=== PATIENT | male | born 1955 | race Caucasian/White ===

== ENCOUNTER 2021-10-31 17:39 | Inpatient (IN) ==
[2021-10-31] MEDS ORDERED: ONDANSETRON 4 MG/2 ML VIAL IV STA (19:20)
[2021-10-31] MEDS ORDERED: HYDROmorphone 1 MG/1 ML SYRINGE IV STA ×2 (19:20→22:04)
[2021-10-31] MEDS ORDERED: AMPICILLIN/SULBACTAM 3,000 MG in SODIUM CHLORIDE 0.9% 100 ML IV STA (19:21)
[2021-10-31 19:32] LABS: Basophils % 0.2 % (0.0-0.8); Eosinophils # 0.2 10*3/uL (0.0-0.87); Eosinophils % 1.5 % (0.00-10.9); Hematocrit 45.2 VOL% (42.0-52.0); Hemoglobin 14.9 GM/DL (14.0-18.0); Immature Granulocytes % 0.4 %; Immature Granulocytes Absolute 0.06 #; Lymphocytes # 1.3 10*3/uL (1.4-4.0); Lymphocytes % 9.2 % (21.2-54.2); Mean Corpuscular Volume 93.4 FL (87-102); Mean Platelet Volume 9.6 FL (9.6-12.0); Monocytes % 7.7 % (1.7-12.7); Platelet Count 250 T/CUMM (130-400); Red Blood Count 4.84 MC/CUMM (3.8-5.5); Red Cell Distribution Width 12.8 % (9.3-17.3); White Blood Count 14.5 T/CUMM (4-12)
[2021-10-31 19:44] LABS: Albumin 3.7 G/DL (3.4-5.0); Bilirubin,Total 0.7 MG/DL (0.20-1.00); Osmolality,Calculated 272.8 MOS/KG (273-304); Potassium 3.8 MMOL/L (3.5-5.1); Total Protein 7.5 G/DL (6.4-8.2)
[2021-10-31 20:06] LABS: Bacteria,Urine Occasional /HPF (Few); Mucus,Urine Many /LPF (Occasional); RBC,Urine 2 /HPF (0-4)
[2021-10-31 20:07] LABS: Bilirubin,Urine Negative (Negative); Blood, Urine Trace mg/dL (Negative); Glucose,Urine (UA) Negative (Negative); Ketones,Urine 15 mg/dL (Negative); Nitrite,Urine Negative (Negative); Protein,Urine Negative (Negative); Urine Appearance Clear (Clear); Urine Color Yellow (Yellow); Urine Specific Gravity 1.025 (1.001-1.035); Urine Urobilinogen 0.2 eU/dL (<2.0); Urine pH 5.5 (4.5-8.0)
[2021-10-31] MEDS ORDERED: ATORVASTATIN 40 MG TABLET PO ONE (21:34)
[2021-10-31] MEDS ORDERED: RANOLAZINE 500 MG TABLET PO SCH (21:35)
[2021-10-31] MEDS: HYDROmorphone 1 MG/1 ML SYRINGE IV SCH (21:50)
[2021-10-31] MEDS ORDERED: ONDANSETRON 4 MG/2 ML VIAL IV PRN (22:02)
[2021-10-31] MEDS: LACTATED RINGERS 1,000 ML IV SCH (23:00)
[2021-11-01] MEDS: HYDROmorphone 1 MG/1 ML SYRINGE IV SCH ×6 (03:05→21:22)
[2021-11-01] MEDS: AMPICILLIN/SULBACTAM 3,000 MG in SODIUM CHLORIDE 0.9% 100 ML IV SCH ×3 (03:39→21:20)
[2021-11-01] MEDS: LACTATED RINGERS 1,000 ML IV SCH ×4 (06:42→21:22)
[2021-11-01] MEDS: PANTOPRAZOLE 40 MG TABLET PO SCH (09:34)
[2021-11-01] MEDS ORDERED: ONDANSETRON 4 MG/2 ML VIAL IV PRN (12:56)
[2021-11-01] MEDS ORDERED: INFLUENZA VIRUS VACCINE 0.5 ML SYRINGE IM ONE (14:59)
[2021-11-01] MEDS: ACETAMINOPHEN 325 MG TABLET PO PRN (16:23)
[2021-11-01] MEDS: ATORVASTATIN 40 MG TABLET PO SCH (21:20)
[2021-11-01] MEDS: MAGNESIUM GLUCONATE 500 MG TABLET PO SCH (21:20)
[2021-11-01] MEDS: RANOLAZINE 500 MG TABLET PO SCH (21:20)
[2021-11-02] MEDS: LACTATED RINGERS 1,000 ML IV SCH ×5 (00:51→22:45)
[2021-11-02] MEDS: HYDROmorphone 1 MG/1 ML SYRINGE IV SCH ×6 (03:37→22:41)
[2021-11-02] MEDS: AMPICILLIN/SULBACTAM 3,000 MG in SODIUM CHLORIDE 0.9% 100 ML IV SCH ×3 (04:58→20:19)
[2021-11-02] MEDS: ASPIRIN EC 81 MG TABLET PO SCH (08:31)
[2021-11-02] MEDS: RANOLAZINE 500 MG TABLET PO SCH ×2 (08:31→20:19)
[2021-11-02] MEDS: ISOSORBIDE MONONITRATE 60 MG TABLET PO SCH (08:31)
[2021-11-02] MEDS: METOPROLOL SUCCINATE XL 25 MG TABLET PO SCH (08:32)
[2021-11-02] MEDS: PANTOPRAZOLE 40 MG TABLET PO SCH (08:32)
[2021-11-02] MEDS: MAGNESIUM GLUCONATE 500 MG TABLET PO SCH ×2 (08:38→20:20)
[2021-11-02 12:26] LABS: Basophils % 0.2 % (0.0-0.8); Eosinophils # 0.2 10*3/uL (0.0-0.87); Eosinophils % 1.7 % (0.00-10.9); Hematocrit 39.4 VOL% (42.0-52.0); Immature Granulocytes % 0.4 %; Immature Granulocytes Absolute 0.04 #; Lymphocytes # 0.8 10*3/uL (1.4-4.0); Mean Platelet Volume 9.4 FL (9.6-12.0); Monocytes % 6.2 % (1.7-12.7); Neutrophils % 82.5 % (38.7-73.9); Platelet Count 197 T/CUMM (130-400); Red Blood Count 4.19 MC/CUMM (3.8-5.5); White Blood Count 9.3 T/CUMM (4-12)
[2021-11-02 12:53] LABS: Calcium 8.8 MG/DL (8.5-10.1); Osmolality,Calculated 279.4 MOS/KG (273-304); Potassium 4.2 MMOL/L (3.5-5.1)
[2021-11-02] MEDS: ACETAMINOPHEN 325 MG TABLET PO PRN (16:28)
[2021-11-02] MEDS: GABAPENTIN 300 MG CAPSULE PO SCH (20:19)
[2021-11-02] MEDS: ATORVASTATIN 40 MG TABLET PO SCH (20:19)
[2021-11-03] MEDS: LACTATED RINGERS 1,000 ML IV SCH ×6 (02:21→21:50)
[2021-11-03] MEDS: HYDROmorphone 1 MG/1 ML SYRINGE IV SCH ×6 (02:27→21:50)
[2021-11-03] MEDS: AMPICILLIN/SULBACTAM 3,000 MG in SODIUM CHLORIDE 0.9% 100 ML IV SCH ×3 (04:08→21:20)
[2021-11-03] MEDS: RANOLAZINE 500 MG TABLET PO SCH ×2 (08:41→21:20)
[2021-11-03] MEDS: ASPIRIN EC 81 MG TABLET PO SCH (08:42)
[2021-11-03] MEDS: METOPROLOL SUCCINATE XL 25 MG TABLET PO SCH (08:42)
[2021-11-03] MEDS: ISOSORBIDE MONONITRATE 60 MG TABLET PO SCH (08:42)
[2021-11-03] MEDS: PANTOPRAZOLE 40 MG TABLET PO SCH (08:42)
[2021-11-03] MEDS: MAGNESIUM GLUCONATE 500 MG TABLET PO SCH ×2 (08:55→21:21)
[2021-11-03] MEDS: GABAPENTIN 300 MG CAPSULE PO SCH (21:20)
[2021-11-03] MEDS: ATORVASTATIN 40 MG TABLET PO SCH (21:20)
[2021-11-04] MEDS: HYDROmorphone 1 MG/1 ML SYRINGE IV SCH ×4 (02:19→14:44)
[2021-11-04] MEDS: LACTATED RINGERS 1,000 ML IV SCH ×2 (05:18→12:51)
[2021-11-04 05:25] LABS: Basophils % 0.8 % (0.0-0.8); Eosinophils # 0.4 10*3/uL (0.0-0.87); Eosinophils % 8.5 % (0.00-10.9); Hematocrit 36.6 VOL% (42.0-52.0); Immature Granulocytes % 0.2 %; Immature Granulocytes Absolute 0.01 #; Lymphocytes # 1.2 10*3/uL (1.4-4.0); Lymphocytes % 22.3 % (21.2-54.2); Mean Corpuscular HGB Conc 32.8 GM/DL (32-36); Mean Corpuscular Volume 93.6 FL (87-102); Mean Platelet Volume 9.6 FL (9.6-12.0); Monocytes % 9.6 % (1.7-12.7); Neutrophils % 58.6 % (38.7-73.9); Platelet Count 206 T/CUMM (130-400); Red Blood Count 3.91 MC/CUMM (3.8-5.5); Red Cell Distribution Width 12.7 % (9.3-17.3); White Blood Count 5.2 T/CUMM (4-12)
[2021-11-04] MEDS: AMPICILLIN/SULBACTAM 3,000 MG in SODIUM CHLORIDE 0.9% 100 ML IV SCH ×2 (05:25→14:44)
[2021-11-04 05:45] LABS: Calcium 8.3 MG/DL (8.5-10.1); Osmolality,Calculated 284.7 MOS/KG (273-304); Potassium 3.9 MMOL/L (3.5-5.1)
[2021-11-04] MEDS: ASPIRIN EC 81 MG TABLET PO SCH (11:48)
[2021-11-04] MEDS: MAGNESIUM GLUCONATE 500 MG TABLET PO SCH (11:49)
[2021-11-04] MEDS: RANOLAZINE 500 MG TABLET PO SCH (11:49)
[2021-11-04] MEDS: ISOSORBIDE MONONITRATE 60 MG TABLET PO SCH (11:49)
[2021-11-04] MEDS: PANTOPRAZOLE 40 MG TABLET PO SCH (11:49)
[2021-11-04] MEDS: METOPROLOL SUCCINATE XL 25 MG TABLET PO SCH (11:49)
[2021-11-04 13:11] VITALS: BP 125/62
== END 2021-11-04 14:58 | disposition home or self-care (01) | DRG 373 ==
LOC: N.ED 17:39 → N.EDINP 21:33 → N.3E 11-01 02:27
PROVIDERS: ADMIT Surgery; ATTEND Surgery

== ENCOUNTER 2022-02-14 23:15 | Observation (INO) ==
[2022-02-14 23:55] LABS: Basophils % 0.1 % (0.0-0.8); Eosinophils # 0.1 10*3/uL (0.0-0.87); Eosinophils % 1.4 % (0.00-10.9); Hematocrit 22.6 VOL% (42.0-52.0); Hemoglobin 7.5 GM/DL (14.0-18.0); Immature Granulocytes % 0.4 %; Immature Granulocytes Absolute 0.03 #; Lymphocytes # 1.1 10*3/uL (1.4-4.0); Lymphocytes % 13.9 % (21.2-54.2); Mean Corpuscular HGB Conc 33.2 GM/DL (32-36); Mean Platelet Volume 9.5 FL (9.6-12.0); Monocytes # 0.8 10*3/uL (0.11-0.8); Monocytes % 9.9 % (1.7-12.7); Neutrophils % 74.3 % (38.7-73.9); Platelet Count 216 T/CUMM (130-400); Red Blood Count 2.43 MC/CUMM (3.8-5.5); Red Cell Distribution Width 13.3 % (9.3-17.3); White Blood Count 8.1 T/CUMM (4-12)
[2022-02-15] MEDS ORDERED: ONDANSETRON 4 MG/2 ML VIAL IV PRN (02:02)
[2022-02-15] MEDS ORDERED: ACETAMINOPHEN 325 MG TABLET PO PRN (02:02)
[2022-02-15] MEDS: DEXTROSE 5% NACL 0.45% 1,000 ML IV SCH ×3 (02:50→17:53)
[2022-02-15] MEDS ORDERED: SODIUM CHLORIDE 0.9% 1,000 ML IV PRN (04:06)
[2022-02-15] MEDS ORDERED: diphenhydrAMINE 50 MG/1 ML VIAL IV ONE ×2 (04:10→04:12)
[2022-02-15] MEDS ORDERED: FUROSEMIDE 20 MG/2 ML VIAL IV ONE ×2 (04:14→11:17)
[2022-02-15 05:51] LABS: Basophils % 0.3 % (0.0-0.8); Eosinophils # 0.1 10*3/uL (0.0-0.87); Eosinophils % 1.5 % (0.00-10.9); Hematocrit 22.7 VOL% (42.0-52.0); Hemoglobin 7.5 GM/DL (14.0-18.0); Immature Granulocytes % 0.3 %; Immature Granulocytes Absolute 0.02 #; Lymphocytes # 1.2 10*3/uL (1.4-4.0); Lymphocytes % 16.3 % (21.2-54.2); Mean Platelet Volume 9.6 FL (9.6-12.0); Monocytes # 0.8 10*3/uL (0.11-0.8); Monocytes % 10.4 % (1.7-12.7); Neutrophils % 71.2 % (38.7-73.9); Platelet Count 221 T/CUMM (130-400); Red Blood Count 2.39 MC/CUMM (3.8-5.5); Red Cell Distribution Width 13.3 % (9.3-17.3); White Blood Count 7.4 T/CUMM (4-12)
[2022-02-15 06:19] LABS: Albumin 2.8 G/DL (3.4-5.0); Bilirubin,Total 1.5 MG/DL (0.20-1.00); Calcium 8.8 MG/DL (8.5-10.1); Osmolality,Calculated 279.4 MOS/KG (273-304); Potassium 4.2 MMOL/L (3.5-5.1)
[2022-02-15] MEDS ORDERED: DIAZEPAM 5 MG TABLET PO PRN (10:15)
[2022-02-15] MEDS: PANTOPRAZOLE 40 MG VIAL IV SCH (11:28)
[2022-02-15] MEDS ORDERED: diphenhydrAMINE 50 MG/1 ML VIAL ONE (13:01)
[2022-02-15] MEDS: oxyCODONE/ACETAMINOPHEN 5-325 MG TABLET PO PRN ×2 (13:07→21:16)
[2022-02-15] MEDS ORDERED: ATORVASTATIN 40 MG TABLET PO SCH (21:00)
[2022-02-15] MEDS: RANOLAZINE 500 MG TABLET PO SCH (21:16)
[2022-02-16] MEDS: DEXTROSE 5% NACL 0.45% 1,000 ML IV SCH ×2 (01:31→09:32)
[2022-02-16 08:21] LABS: Hematocrit 31.7 VOL% (42.0-52.0); Hemoglobin 10.2 GM/DL (14.0-18.0)
[2022-02-16] MEDS: PANTOPRAZOLE 40 MG VIAL IV SCH (08:23)
[2022-02-16] MEDS: RANOLAZINE 500 MG TABLET PO SCH (08:24)
[2022-02-16 08:42] VITALS: BP 108/62
[2022-02-16] MEDS ORDERED: METOPROLOL SUCCINATE XL 25 MG TABLET PO SCH (09:00)
[2022-02-16] MEDS ORDERED: ASPIRIN EC 81 MG TABLET PO SCH (09:00)
[2022-02-16] MEDS ORDERED: ISOSORBIDE MONONITRATE 60 MG TABLET PO SCH (09:00)
[2022-02-16] MEDS ORDERED: GABAPENTIN 300 MG CAPSULE PO SCH (09:00)
[2022-02-16] MEDS ORDERED: MAGNESIUM OXIDE 400 MG TABLET PO SCH (09:00)
== END 2022-02-16 12:00 | disposition home or self-care (01) ==
LOC: N.EDINP 23:15 → N.ED 23:15 → N.EDINP 02-15 03:33 → N.TELEN 02-15 04:11
PROVIDERS: ADMIT Surgery; ATTEND Surgery